=== PATIENT | female | born 1930 | race Caucasian/White ===

== ENCOUNTER → 2016-04-28 | Outpatient (REF) | payer MEDICARE, BC, OTHER ==
[~2016-04-28] MED LIST: /ATOR40TA PO; /MOM400 PO; ACET50TA PO; ALBUTEROL INH; ANTI25TA PO; ANTIVERT PO; ASPI325T PO; ASPI81TA7 PO; CALC600T7 PO; CALCIUM CARBONATE PO; CIPR500T89 PO; CLOB-49 TOP; COLON HEALTH PO; DOXY100C PO; ECHICAP PO; ECHINACEA PO; FIBE1CHW2 PO; FISH1000 PO; FISH100049 PO; FLAG500T PO; HYDR12.56 PO; HYDR25TAB PO; LIPI20TA PO; LISI40TAB PO; LOTR15CR TOP; LOTRCRE TOP; MULTTAB4 PO; NITR100C37 PO; NITRO10CA PO; STOOL SOFTNER PO; TYLE500T78 PO; VALI5TAB PO; VITA-130 PO; VITA500C24 PO; ZANT150T PO; ZANTTAB9 PO
[2016-04-29 08:31] LABS: CONTROL LINE INT CTR LINE PRESENT; HIV SCRN NEGATIVE (NEGATIVE); HIV SCRN1 NEGATIVE (NEGATIVE)
== END | disposition home or self-care (01) ==
LOC: M LAB REF 16:26
PROVIDERS: ATTEND Internal Medicine
DX: N95.2 Postmenopausal atrophic vaginitis (principal)

== ENCOUNTER → 2016-06-10 | Outpatient (REF) | payer MEDICARE, BC, OTHER | LOC: M LAB REF 16:20 | PROVIDERS: ATTEND Internal Medicine | DX: N39.0 Urinary tract infection, site not specified (principal) ==

== ENCOUNTER → 2016-12-01 | Outpatient (CLI) | payer MEDICARE, BC, OTHER ==
[~2016-12-01] MED LIST changes: -VITA-130 PO; +VITA500T PO
--- NOTE | 2016-12-01 16:26 | REP ---
RENAL NUCLEAR SCAN WITH FLOW AND FUNCTION: Following the intravenous administration of 8.3 mCi of technetium 99m MAG3, immediate flow images are obtained in the posterior projection showing slightly greater degree of perfusion of the left kidney compared to the right. Delayed renal function images are performed every minute for a period of 30 minutes in the posterior projection. Photopenic area in the lower pole of the left kidney is consistent with history of a cyst at that location as seen on ultrasound of 09/07/2016 at [facility]. There is bilateral cortical uptake and washout with bilateral excretion. There is no overt hydronephrosis with an apparent extrarenal pelvis bilaterally. Split function is 55.9% on the left and 44.1% on the right. Time to peak is 2 minutes on the left and 1 minute on the right. T-1/2 on the left is 8.8 minutes and 7.6 minutes on the right. These values are normal. Renal function curves are normal in their downward slopes. There is mild postvoid residual in the urinary bladder after voiding. IMPRESSION: Essentially normal renal nuclear scan. No evidence of urinary tract obstruction. Signed by Sukh Cee MD 12/01/2016 05:14 P
== END ==
LOC: M RAD 13:32
PROVIDERS: ATTEND Internal Medicine Nephrology
DX: I70.1 Atherosclerosis of renal artery (principal); I15.0 Renovascular hypertension
CPT/HCPCS: 78707; A9562

== ENCOUNTER → 2017-02-02 | Outpatient (REF) | payer MEDICARE, BC, OTHER | LOC: M LAB REF 15:01 | PROVIDERS: ATTEND Internal Medicine | DX: Z51.81 Encounter for therapeutic drug level monitoring (principal); Z79.899 Other long term (current) drug therapy ==

== ENCOUNTER → 2017-03-09 | Outpatient (REF) | payer MEDICARE, BC | LOC: M LAB REF 13:17 | PROVIDERS: ATTEND Internal Medicine Nephrology | DX: D50.9 Iron deficiency anemia, unspecified (principal); N39.0 Urinary tract infection, site not specified ==

== ENCOUNTER → 2017-03-09 | Outpatient (REF) | payer MEDICARE, BC | LOC: M LAB REF 16:46 | PROVIDERS: ATTEND Internal Medicine Nephrology | DX: N39.0 Urinary tract infection, site not specified (principal) ==

== ENCOUNTER → 2017-08-09 | Outpatient (REF) | payer MEDICARE, BC, OTHER ==
[2017-08-09 14:02] LABS: WBC, URINE 20-30 /hpf (0-3)
[2017-08-09 14:03] LABS: BACTERIA, URINE LARGE AMOUNT; HYALINE CAST, URINE NONE SEEN /lpf (0-1); MICROSCOPIC EXAM PERFORMED; SQUAMOUS EPITHELIAL CELL URINE MOD AMOUNT /hpf (SMALL AMT)
== END ==
LOC: M SMT 13:05
DX: R32 Unspecified urinary incontinence (principal)
CPT/HCPCS: 81015

== ENCOUNTER → 2017-10-13 | Outpatient (REF) | payer MEDICARE, BC, OTHER ==
[2017-10-13 18:36] LABS: APPEARANCE, URINE HAZY (CLEAR); BACTERIA, URINE AUTO 1+ (NEGATIVE); BILIRUBIN, URINE AUTO NEGATIVE (NEGATIVE); BLOOD, URINE BLOOD NEGATIVE (NEGATIVE); COLOR, URINE YELLOW (YELLOW); GLUCOSE, URINE (UA) AUTO NEGATIVE (NEGATIVE); KETONE, URINE AUTO NEGATIVE (NEGATIVE); LEUKOCYTE ESTERASE, URINE AUTO 1+ (NEGATIVE); NITRITE, URINE AUTO POSITIVE (NEGATIVE); PROTEIN, URINE AUTO NEGATIVE (NEGATIVE); RBC, URINE AUTO 3 /HPF (0-3); SPECIFIC GRAVITY URINE AUTO 1.015 (1.002-1.035); SQUAMOUS EPITHELIAL CELL UR AU 0 /HPF (0-6); UROBILINOGEN, URINE AUTO 0.2 mg/dL (0.0-2.0); WBC, URINE AUTO 32 /HPF (0-3)
== END ==
LOC: M LAB REF 16:32
DX: N39.0 Urinary tract infection, site not specified (principal)
CPT/HCPCS: 81001

== ENCOUNTER → 2018-02-13 | Outpatient (REF) | payer MEDICARE, BC, OTHER ==
[2018-02-13 18:37] LABS: FERRITIN 30 NG/ML (8-252); IRON (FE) 94 UG/DL (50-170); PERCENT SATURATION 33.1 % (13.2-45.0); TOTAL IRON BINDING CAPACITY 284 UG/DL (250-450)
== END ==
LOC: M LAB REF 17:15
DX: N18.3 Chronic kidney disease, stage 3 (moderate) (principal); D63.1 Anemia in chronic kidney disease
CPT/HCPCS: 83550

== ENCOUNTER 2018-04-28 07:10 | Day surgery (SDC) | payer MEDICARE, BC, OTHER ==
[~2018-04-28] VITALS: Ht 154.9 cm; Wt 49.4 kg
[~2018-04-28 07:10] MED LIST changes: +AMLO25TA PO; +ATOR1TAB19 PO; +CALC1TAB40 PO; +CHLO125TA; +CVS8.6TA5 PO; +DICL1GEL TD; +FOLI1TAB11 PO; +GABA-1171 PO; +LISI-538 PO; +LR 1,000 ML IV ONE; +MULT1TAB10 PO; +NITR-67 PO; -NITRO10CA PO; +TYLE650T35 PO; +VITA100067 PO; +ZANTTAB PO; +ceFAZolin SOD 1 GM in D5W MINI-BAG PLUS 50 ML IV ONE
[2018-04-28] MEDS ORDERED: fentaNYL 250 MCG/5 ML INJECTION (J3010) As Ordered ONE (07:13)
[2018-04-28] MEDS ORDERED: LIDOCAINE 2% INJ 100 MG/5 ML SDV (FOR ANES.) As Ordered ONE (07:13)
[2018-04-28] MEDS ORDERED: MIDAZOLAM INJ 2 MG/2 ML VIAL (J2250) As Ordered ONE (07:13)
[2018-04-28] MEDS ORDERED: PROPOFOL 200 MG/20 ML VIAL As Ordered ONE (07:13)
[2018-04-28] MEDS ORDERED: ROCURONIUM BROMIDE 50 MG/5 ML VIAL As Ordered ONE (07:13)
[2018-04-28] MEDS ORDERED: BUPIVACAINE/EPIN 0.25% 30 ML VIAL As Ordered ONE (07:21)
[2018-04-28] MEDS ORDERED: ePHEDrine SULFATE 25 MG/5 ML(5MG/ML) SYRINGE As Ordered ONE (09:00)
[2018-04-28] MEDS ORDERED: dexameTHASONE 4 MG/ML 1ML VIAL (J1100) As Ordered ONE (09:00)
[2018-04-28] MEDS ORDERED: GLYCOPYRROLATE INJ 0.2 MG/ML 2 ML VIAL As Ordered ONE (09:02)
[2018-04-28] MEDS ORDERED: PHENYLephrine HCL 500 MCG/5 ML (100MCG/ML) SYRINGE (J2370) As Ordered ONE (09:03)
[2018-04-28] MEDS ORDERED: SUGAMMADEX SODIUM 500 MG/5 ML VIAL (BRIDION) As Ordered ONE (09:20)
[2018-04-28] MEDS ORDERED: ONDANSETRON 4MG/2ML VIAL (J2405) As Ordered ONE (09:20)
[2018-04-28] MEDS ORDERED: ATROPINE SULF 1MG/10ML SYRINGE (J0461) As Ordered ONE (09:20)
[2018-04-28] MEDS ORDERED: LR 1,000 ML IV SCH ×2 (10:15)
[2018-04-28] MEDS ORDERED: METOCLOPRAMIDE INJ 10MG/2ML VIAL (J2765) IV PRN (10:15)
[2018-04-28] MEDS ORDERED: PERCOCET 5MG/325MG TAB PO PRN (10:15)
[2018-04-28] MEDS ORDERED: fentaNYL 100 MCG/2 ML INJECTION (J3010) IV PRN (10:15)
[2018-04-28] MEDS ORDERED: ONDANSETRON 4MG/2ML VIAL (J2405) IV PRN ×2 (10:15)
[2018-04-28] MEDS: NORCO, ANEXSIA 5/325MG TABLET (HYDROcodone/ACETAMINOPHEN) PO PRN ×2 (11:59→16:00)
[2018-04-28 16:12] VITALS: BP 152/66
== END 2018-04-28 16:11 | disposition home or self-care (01) ==
LOC: M SDC 07:10
PROVIDERS: ATTEND Surgery
DX: K80.18 Calculus of gallbladder with other cholecystitis without obstruction (principal); I10 Essential (primary) hypertension; K21.9 Gastro-esophageal reflux disease without esophagitis; F41.9 Anxiety disorder, unspecified; Z79.82 Long term (current) use of aspirin; Z79.899 Other long term (current) drug therapy
CPT/HCPCS: 47562; 88304; J0461; J0690; J1100; J2370; J2405; J3010

== ENCOUNTER → 2018-07-17 | Outpatient (REF) | payer MEDICARE, BC, OTHER ==
[~2018-07-17] MED LIST changes: -LR 1,000 ML IV ONE; -ceFAZolin SOD 1 GM in D5W MINI-BAG PLUS 50 ML IV ONE
== END ==
LOC: M LAB REF 16:50
PROVIDERS: ATTEND Internal Medicine Nephrology
DX: N39.0 Urinary tract infection, site not specified (principal)

== ENCOUNTER → 2019-01-29 | Outpatient (REF) | payer MEDICARE, BC, OTHER ==
[~2019-01-29] MED LIST changes: -/ATOR40TA PO; -/MOM400 PO; -ACET50TA PO; +ASPI-1 PO; -ASPI325T PO; +CLOT1CRE71 TOP; -CVS8.6TA5 PO; +HYDR-2541 PO; -HYDR25TAB PO; +LIPI1TAB2 PO; +LISI40TA52 PO; -LISI40TAB PO; -LOTR15CR TOP; +MAPA500T17 PO; +MILK10SU PO; +SENN-85 PO; +ZANT150T40 PO; -ZANTTAB PO
== END ==
LOC: M LAB REF 12:44
PROVIDERS: ATTEND Internal Medicine Nephrology
DX: N39.0 Urinary tract infection, site not specified (principal)

== ENCOUNTER → 2019-02-28 | Outpatient (REF) | payer MEDICARE, BC, OTHER | LOC: M LAB REF 13:39 | PROVIDERS: ATTEND Nurse Practitioner Family | DX: N39.0 Urinary tract infection, site not specified (principal) ==

== ENCOUNTER → 2019-03-23 | Outpatient (REF) | payer MEDICARE, BC, OTHER | LOC: M LAB REF 17:30 | PROVIDERS: ATTEND Nurse Practitioner Family | DX: N39.0 Urinary tract infection, site not specified (principal) ==

== ENCOUNTER → 2019-06-28 | Outpatient (REF) | payer MEDICARE, BC, OTHER ==
[2019-06-28 20:13] LABS: BACTERIA, URINE AUTO NEG (NEGATIVE); RBC, URINE AUTO 0 /HPF (0-3); WBC, URINE AUTO 2 /HPF (0-3)
[2019-06-28 20:14] LABS: MUCUS, URINE SMALL (NEGATIVE); SQUAMOUS EPITHELIAL CELL UR AU 0 /HPF (0-6); TRANSITIONAL EPITHELIAL AUTO 1 /HPF
== END ==
LOC: M SMT 16:47
PROVIDERS: ATTEND Specialist
DX: R32 Unspecified urinary incontinence (principal)
CPT/HCPCS: 52000; 81015; 87086; G0463

== ENCOUNTER → 2020-01-10 | Outpatient (REF) | payer MEDICARE, BC, OTHER ==
[~2020-01-10] MED LIST changes: +ACET650T61 PO; -TYLE650T35 PO; +VITA-243 PO; -VITA500T PO
[2020-01-11 12:47] LABS: PERCENT SATURATION 17.4 % (13.2-45.0)
== END ==
LOC: M LAB REF 11:46
PROVIDERS: ATTEND Internal Medicine
DX: N18.9 Chronic kidney disease, unspecified (principal); D63.1 Anemia in chronic kidney disease

== ENCOUNTER → 2020-05-27 | Outpatient (REF) | payer MEDICARE, BC, OTHER ==
[~2020-05-27] MED LIST changes: -LISI-538 PO; +LISI20TA33 PO
== END ==
LOC: M LAB REF 16:27
PROVIDERS: ATTEND Internal Medicine
DX: N76.0 Acute vaginitis (principal)

== ENCOUNTER → 2020-06-16 | Outpatient (REF) | payer MEDICARE, BC, OTHER | LOC: M LAB REF 14:46 | PROVIDERS: ATTEND Internal Medicine Gastroenterology | DX: Z12.12 Encounter for screening for malignant neoplasm of rectum (principal); K62.3 Rectal prolapse ==

== ENCOUNTER → 2020-06-30 | Outpatient (CLI) | payer MEDICARE, BC, OTHER ==
[~2020-06-30] MED LIST changes: +LIQUID POLIBAR PLUS 105% w/v 1900ML BTL As Ordered ONE
--- NOTE | 2020-06-30 15:21 | REP ---
INDICATION: RECTAL PROLAPSE. COMPARISON: None. TECHNIQUE: The procedure was performed under the direct supervision of Dr. Heaton. The images were reviewed with Dr. Heaton. The forms analyst film shows normal organomegaly or pathological mass is. The intestinal gas pattern is nonspecific. There are vascular calcifications identified. There are surgical clips noted in the right upper quadrant. Liquid barium and air were instilled into the colon and a retrograde flow of the barium and air mixture. FINDINGS: The colon is normal in position and contour. There are innumerable diverticula seen in the sigmoid colon and scattered diverticula throughout the remainder of the colon. In the distal descending colon there is a 1 cm filling defect which may represent a polypoid lesion. Consider endoscopic correlation. There is free flow contrast to the cecum. There are no annular constricting lesions identified. 1.5 minutes of fluoroscopy time was utilized for this procedure. IMPRESSION: 1. There are innumerable diverticula in the sigmoid colon and scattered diverticula seen throughout the remainder of the colon. 2. In the distal descending colon there is a 1 cm filling defect which may represent a polypoid lesion. Consider endoscopic correlation. <Electronically signed by Jose Manuel Baker > 06/30/20 [id number] <Electronically signed by Balwinder Heaton > 06/30/20 1515
== END ==
LOC: M RAD 08:57
PROVIDERS: ATTEND Internal Medicine Gastroenterology
DX: K62.3 Rectal prolapse (principal)

== ENCOUNTER → 2020-07-31 | Outpatient (REF) | payer MEDICARE, BC, OTHER ==
[~2020-07-31] MED LIST changes: -LIQUID POLIBAR PLUS 105% w/v 1900ML BTL As Ordered ONE
== END ==
LOC: M LAB REF 16:12
PROVIDERS: ATTEND Internal Medicine
DX: R25.1 Tremor, unspecified (principal)

== ENCOUNTER → 2020-08-31 | Outpatient (CLI) | payer MEDICARE, BC, OTHER ==
[~2020-08-31] MED LIST changes: +CALC500T52 PO; +D31000TA2 PO; +ESTR1CRE PV; +FAMO1TAB11; +MAGN1TAB39 PO; +META0.52 PO; +METH-855; +MYRB50TA; +SM F PO; +VITMTA PO
== END ==
LOC: M LABSMTC 10:57
PROVIDERS: ATTEND Anesthesiology
DX: Z01.818 Encounter for other preprocedural examination (principal); Z11.52 Encounter for screening for COVID-19

== ENCOUNTER 2020-09-05 11:11 | Day surgery (SDC) | payer MEDICARE, BC, OTHER ==
[~2020-09-05] VITALS: Ht 154.9 cm; Wt 46.7 kg
[~2020-09-05 11:11] MED LIST changes: +NS 1,000 ML IV ONE
[2020-09-05] MEDS ORDERED: propofoL 200 MG/20 ML VIAL As Ordered ONE (11:53)
--- NOTE | 2020-09-05 12:49 | ROOR ---
Patient Name: Deanna Queen Procedure Date: 09/05/2020 12:08 PM Date of : 1930 Age: 89 Room: [facility] Gender: Female Note Status: Finalized Procedure: Colonoscopy Indications: Abnormal CT of the GI tract Providers: Jadiel Brewster MD Referring MD: Yesy CORDERO MD Requesting Provider: Medicines: Monitored Anesthesia Care Complications: No immediate complications. Procedure: Pre-Anesthesia Assessment: - Prior to the procedure, a History and Physical was performed, and patient medications and allergies were reviewed. The patient is competent. The risks and benefits of the procedure and the sedation options and risks were discussed with the patient. All questions were answered and informed consent was obtained. Patient identification and proposed procedure were verified by the physician, the nurse and the anesthesiologist in the procedure room. Mental Status Examination: alert and oriented. Airway Examination: normal oropharyngeal airway and neck mobility. Respiratory Examination: clear to auscultation. CV Examination: normal. Prophylactic Antibiotics: The patient does not require prophylactic antibiotics. Prior Anticoagulants: The patient has taken no previous anticoagulant or antiplatelet agents. ASA Grade Assessment: III - A patient with severe systemic disease. After reviewing the risks and benefits, the patient was deemed in satisfactory condition to undergo the procedure. The anesthesia plan was to use monitored anesthesia care (MAC). Immediately prior to administration of medications, the patient was re-assessed for adequacy to receive sedatives. The heart rate, respiratory rate, oxygen saturations, blood pressure, adequacy of pulmonary ventilation, and response to care were monitored throughout the procedure. The physical status of the patient was re-assessed after the procedure. The Colonoscope was introduced through the anus and advanced to the terminal ileum, with identification of the appendiceal orifice and IC valve. The colonoscopy was performed without difficulty. The patient tolerated the procedure well. The quality of the bowel preparation was good. The terminal ileum, ileocecal valve, appendiceal orifice, and rectum were photographed. Scope insertion time was 2 minutes. Scope withdrawal time was 8 minutes. The total duration of the procedure was 10 minutes. Findings: The perianal and digital rectal examinations were normal. The terminal ileum appeared normal. Multiple small and large-mouthed diverticula were found from sigmoid to descending colon. There was narrowing of the colon in association with the diverticular opening. There was evidence of diverticular spasm. Perla-diverticular erythema was seen. There was no evidence of diverticular bleeding. Non-bleeding external and internal hemorrhoids were found during retroflexion. The hemorrhoids were medium-sized. Normal mucosa was found in the entire colon. Impression: - The examined portion of the ileum was normal. - Severe diverticulosis from sigmoid to descending colon. There was narrowing of the colon in association with the diverticular opening. There was evidence of diverticular spasm. Perla-diverticular erythema was seen. There was no evidence of diverticular bleeding. - Non-bleeding external and internal hemorrhoids. - Normal mucosa in the entire examined colon. - No specimens collected. Recommendation: - Patient has a contact number available for emergencies. The signs and symptoms of potential delayed complications were discussed with the patient. Return to normal activities tomorrow. Written discharge instructions were provided to the patient. - High fiber diet. - Continue present medications. - Use original regular Metamucil one teaspoon PO BID. - Miralax 1 capful (17 grams) in 8 ounces of water PO daily. - Repeat colonoscopy is not recommended due to current age (66 years or older) depending on clinical and functional status. - Return to primary care physician. Procedure Code(s): --- Professional --- 52107, Colonoscopy, flexible; diagnostic, including collection of specimen(s) by brushing or washing, when performed (separate procedure) Diagnosis Code(s): --- Professional --- K64.8, Other hemorrhoids K57.30, Diverticulosis of large intestine without perforation or abscess without bleeding R93.3, Abnormal findings on diagnostic imaging of other parts of digestive tract CPT copyright 2019 [employer]. All rights reserved. The codes documented in this report are preliminary and upon professional tutor review may be revised to meet current compliance requirements. Jadiel Brewster MD Jadiel Brewster MD 09/05/2020 12:49:06 PM Electronically signed by Jadiel Brewster MD Number of Addenda: 0 Note Initiated On: 09/05/2020 12:08 PM Estimated Blood Loss: Estimated blood loss: none.
[2020-09-05 13:15] VITALS: BP 140/69
== END 2020-09-05 13:54 | disposition home or self-care (01) ==
LOC: M OPP 11:11
PROVIDERS: ATTEND Internal Medicine Gastroenterology
DX: K57.30 Diverticulosis of large intestine without perforation or abscess without bleeding (principal); K64.8 Other hemorrhoids; R93.3 Abnormal findings on diagnostic imaging of other parts of digestive tract; K21.9 Gastro-esophageal reflux disease without esophagitis; F17.210 Nicotine dependence, cigarettes, uncomplicated; Z79.82 Long term (current) use of aspirin; Z79.899 Other long term (current) drug therapy; Z88.8 Allergy status to other drugs, medicaments and biological substances